=== PATIENT | female | born 1980 | race Caucasian/White ===

== ENCOUNTER 2017-03-16 16:26 | Emergency (ER) | payer BC ==
[2017-03-16 18:05] LABS: ALBUMIN 3.8 g/dL (3.2-5.5); ALBUMIN/GLOBULIN RATIO 1.1 (1.0-2.2); BILIRUBIN,TOTAL 0.4 mg/dL (0.2-1.0); CALCIUM 8.6 mg/dL (8.5-10.3); CREATININE 0.6 mg/dL (0.4-1.0); TOTAL PROTEIN 7.2 g/dL (6.7-8.2)
[2017-03-16 18:11] LABS: BASOPHILS % (AUTO) 0.4 %; EOSINOPHILS # (AUTO) 0.1 10^3/uL (0.0-0.7); EOSINOPHILS % (AUTO) 1.6 %; HGB - HEMOGLOBIN 11.8 g/dL (12.0-16.0); MEAN CORPUSCULAR HEMOGLOBIN 27.3 pg (27.0-31.0); MEAN CORPUSCULAR HGB CONC 32.2 g/dL (32.0-36.0); MEAN CORPUSCULAR VOLUME 84.7 fL (81.0-99.0); MEAN PLATELET VOLUME 7.2 fL (7.9-10.8); MONOCYTES # (AUTO) 0.5 10^3/uL (0.0-1.0); MONOCYTES % (AUTO) 6.9 %; NEUTROPHILS # (AUTO) 4.9 10^3/uL (1.5-6.6); NEUTROPHILS % (AUTO) 65.1 %; PLT - PLATELET COUNT 210 10^3/uL (130-450); RED BLOOD COUNT 4.32 10^6/uL (4.20-5.40); RED CELL DISTRIBUTION WIDTH 16.9 % (12.0-15.0); WHITE BLOOD COUNT 7.5 x10^3/uL (4.8-10.8)
[2017-03-16] MEDS ORDERED: HYDROcod/ACETAM 5/325 MG TABLET PO STA (18:19)
--- NOTE | 2017-03-16 18:21 | ED Physician Documentation ---
History of Present Illness - Stated complaint Stated Complaint: FEMALE /7WEEKS PREG/ABD PX - Chief complaint Chief Complaint: General - History obtained from History obtained from: Patient, Family - History of Present Illness Timing: Today Pain level max: 8 Pain level now: 5 Improved by: nothing Worsened by: nothing - Additonal information Additional information: , EGA 5 weeks. HCG quant 4k last week at [facility], 5k, 2 days ago at [facility]. vaginal bleeding and cramping today. R pelvic pain. Had an US with empty GS 2 days ago, did not have R pelvic pain then. Review of Systems Ten Systems: 10 systems reviewed and negative Constitutional: denies: Fever, Chills Nose: denies: Rhinorrhea / runny nose, Congestion Throat: denies: Sore throat Cardiac: denies: Chest pain / pressure Respiratory: denies: Cough GI: denies: Abdominal Pain, Nausea, Vomiting, Diarrhea Skin: denies: Rash Musculoskeletal: denies: Neck pain, Back pain Neurologic: denies: Headache PD PAST MEDICAL HISTORY - Past Medical History Past Medical History: Yes GI: Other Psych: Depression - Past Surgical History Past Surgical History: Yes HEENT: Tonsil/Adenoidectomy - Present Medications Home Medications: Ambulatory Orders Medication Instructions Recorded Confirmed Hydrocodone/Acetaminophen 1 - 2 each PO Q6H PRN #14 tablet 03/16/17 [Hydrocodon-Acetaminophen 5-325] Ondansetron Odt [Zofran] 4 mg TL Q6H PRN #10 tablet 03/16/17 - Allergies Allergies/Adverse Reactions: Allergies Allergy/AdvReac Type Severity Reaction Status Date / Time cephalexin [From Keflex] Allergy Hives Verified 03/16/17 16:58 codeine Allergy Nausea Verified 03/16/17 16:58 - Living Situation Living Situation: reports: With family Living Arrangement: reports: At home - Social History Does the pt smoke?: No Smoking Status: Never smoker PD ED PE NORMAL - Vitals Vital signs reviewed: Yes - General General: Alert and oriented X 3, No acute distress, Well developed/nourished - HEENT HEENT: Moist mucous membranes - Neck Neck: Supple, no meningeal sign - Cardiac Cardiac: RRR, Strong equal pulses - Respiratory Respiratory: No respiratory distress, Clear bilaterally - Abdomen Abdomen: Soft, Non tender, Non distended - Female Female : Pt declined - Back Back: No CVA TTP - Derm Derm: Warm and dry - Neuro Neuro: Alert and oriented X 3 - Psych Psych: Normal mood, Normal affect Results - Vitals Vitals: Vital Signs - 24 hr 03/16/17 03/16/17 16:54 19:55 Temperature 36.4 C L Heart Rate 93 93 Respiratory 18 15 Rate Blood Pressure 142/76 H 131/69 H O2 Saturation 100 97 Oxygen O2 Source Room air - Labs Labs: Laboratory Tests 03/16/17 03/16/17 03/16/17 17:40 17:40 18:03 WBC 7.5 RBC 4.32 Hgb 11.8 L Hct 36.6 L MCV 84.7 MCH 27.3 MCHC 32.2 RDW 16.9 H Plt Count 210 MPV 7.2 L Neut # 4.9 Lymph # 2.0 [place] # 0.5 Eos # 0.1 Baso # 0.0 Absolute Nucleated RBC 0.00 Nucleated RBC % 0.0 Sodium 134 L Potassium 3.8 Chloride 105 Carbon Dioxide 19 L Anion Gap 10.0 BUN 11 Creatinine 0.6 Estimated GFR (MDRD) 114 Glucose 86 Calcium 8.6 Total Bilirubin 0.4 AST 26 ALT 24 Alkaline Phosphatase 70 Total Protein 7.2 Albumin 3.8 Globulin 3.4 Albumin/Globulin Ratio 1.1 Lipase 15 L HCG, Quant 3321.00 Urine Color Urine Clarity Urine pH Ur Specific [place] Urine Protein Urine Glucose (UA) Urine Ketones Urine Occult Blood Urine Nitrite Urine Bilirubin Urine Urobilinogen Ur Leukocyte Esterase Urine RBC Urine WBC Ur Squamous Epith Cells Urine Bacteria Ur Microscopic Review Urine Culture Comments Urine HCG, Qual 03/16/17 03/16/17 18:20 18:20 WBC RBC Hgb Hct MCV MCH MCHC RDW Plt Count MPV Neut # Lymph # [place] # Eos # Baso # Absolute Nucleated RBC Nucleated RBC % Sodium Potassium Chloride Carbon Dioxide Anion Gap BUN Creatinine Estimated GFR (MDRD) Glucose Calcium Total Bilirubin AST ALT Alkaline Phosphatase Total Protein Albumin Globulin Albumin/Globulin Ratio Lipase HCG, Quant Urine Color LT. YELLOW Urine Clarity HAZY Urine pH 6.0 Ur Specific [place] 1.010 1.010 Urine Protein NEGATIVE Urine Glucose (UA) NEGATIVE Urine Ketones NEGATIVE Urine Occult Blood LARGE H Urine Nitrite NEGATIVE Urine Bilirubin NEGATIVE Urine Urobilinogen 0.2 (NORMAL) Ur Leukocyte Esterase SMALL H Urine RBC TNTC H Urine WBC 11-25 H Ur Squamous Epith Cells FEW Squamous Urine Bacteria None Seen Ur Microscopic Review INDICATED Urine Culture Comments INDICATED Urine HCG, Qual POSITIVE - Rads (name of study) Pelvic US Radiology: Prelim report reviewed, EMP read contemporaneously, See rad report ( Single intrauterine gestational sac at EGA 5 weeks 1 day with URBAN 11/15/2017 based on mean sac diameter. No abnormalities identified to explain pain and bleeding ) PD MEDICAL DECISION MAKING - ED course Complexity details: reviewed results, re-evaluated patient, considered differential, d/w patient, d/w family ED course: Patient is a 36-year-old female presents to the emergency department with what appears to be an incomplete miscarriage. HCG is decreasing from 0974-4415. Gestational sac appears unchanged from her prior given her oral report of her history. She did develop nausea and vomiting after the hydrocodone, therefore Zofran was given. She is able tolerate p.o. We will have her follow-up with her doctor for further care. Unclear if this is an anembryonic or just an early miscarriage. Patient counseled regarding signs and symptoms for which I believe and urgent re-evaluation would be necessary. Patient with good understanding of and agreement to plan and is comfortable going home at this time This document was made in part using voice recognition software. While efforts are made to proofread this document, sound alike and grammatical errors may occur. Departure - Departure Disposition: 01 Home, Self Care Condition: Good Instructions: ED Miscarriage Incom Follow-Up: your,OB in 3 days [Other] Prescriptions: Hydrocodone/Acetaminophen [Hydrocodon-Acetaminophen 5-325] 1 - 2 each PO Q6H PRN #14 tablet PRN Reason: pain Ondansetron Odt [Zofran] 4 mg TL Q6H PRN #10 tablet PRN Reason: Nausea / Vomiting Comments: your HCG is down to 3300 today. You are likely miscarrying. Follow up with your doctor closely for further care. Return if you worsen. Discharge Date/Time: 03/16/17 21:07
[2017-03-16 18:41] LABS: BILIRUBIN,URINE NEGATIVE (NEGATIVE); GLUCOSE, URINE (UA) NEGATIVE (NEGATIVE); KETONES,URINE (UA) NEGATIVE (NEGATIVE); LEUKOCYTE ESTERASE, URINE SMALL (NEGATIVE); NITRITE,URINE NEGATIVE (NEGATIVE); OCCULT BLOOD,URINE LARGE (NEGATIVE); PROTEIN,URINE NEGATIVE (NEGATIVE); UROBILINOGEN,URINE 0.2 (NORMAL) E.U./dL (NORMAL)
[2017-03-16 18:42] LABS: CLARITY,URINE HAZY (CLEAR)
[2017-03-16 18:43] LABS: HCG UR QUAL POSITIVE
[2017-03-16 18:51] LABS: BACTERIA,URINE None Seen /HPF (None Seen); RBC,URINE TNTC /HPF (0-5); SQUAMOUS EPITHELIAL CELL,UR FEW Squamous (<= Few)
[2017-03-16 19:55] VITALS: BP 131/69
--- NOTE | 2017-03-16 20:41 | Ultrasound Report ---
EXAM: FIRST TRIMESTER OBSTETRIC ULTRASOUND (Less than 11 weeks) EXAM DATE: 03/16/2017 07:50 PM. CLINICAL HISTORY: Right pelvic pain, bleeding. LMP: Unknown. COMPARISONS: None. TECHNIQUE: Transabdominal and transvaginal ultrasound examination with static image documentation. CLINICAL DATES: EGA 5 weeks. HCG 3321. ASSESSMENT: Gestational Sac: Single intrauterine. Mean gestational sac diameter: 10.6 mm = 5 weeks 1 day. Embryo: CRL (crown-rump length) nonvisualized. Cardiac activity: Nonvisualized. Yolk sac: Nonvisualized. Amniotic fluid: Not accurately assessed at this gestational age. Early placenta: Not visible at this gestational age. Other: No perigestational fluid collection demonstrated. MATERNAL STRUCTURES: Uterus: Anteverted. Unremarkable. Cervix: Closed. Right Ovary/Adnexa: Unremarkable. The ovary measures 3.4 x 2.9 x 2.4 cm, volume 12.3 cc. Left Ovary/Adnexa: Unremarkable. The ovary measures 2.9 x 1.6 x 1.9 cm, volume 4.6 cc. Free Fluid: None. Other: None. IMPRESSION: 1. Single intrauterine gestational sac at EGA 5 weeks 1 day with URBAN 11/15/2017 based on mean sac ren meter. 2. No abnormalities identified to explain pain and bleeding [facility] Referring Provider Line: [phone] SITE ID: [id number]
[2017-03-16] MEDS ORDERED: ONDANSETRON ODT 4 MG TABLET TL STA (20:56)
--- NOTE | 2017-03-16 22:57 | ED Physician Documentation ---
Departure - Departure Disposition: 01 Home, Self Care Clinical Impression: Miscarriage Condition: Good Instructions: ED Miscarriage Incom Follow-Up: your,OB in 3 days [Other] Prescriptions: Hydrocodone/Acetaminophen [Hydrocodon-Acetaminophen 5-325] 1 - 2 each PO Q6H PRN #14 tablet PRN Reason: pain Ondansetron Odt [Zofran] 4 mg TL Q6H PRN #10 tablet PRN Reason: Nausea / Vomiting Comments: your HCG is down to 3300 today. You are likely miscarrying. Follow up with your doctor closely for further care. Return if you worsen. Discharge Date/Time: 03/16/17 21:07
== END 2017-03-16 21:07 | disposition home or self-care (01) ==
LOC: ED 16:26
DX: O03.9 Complete or unspecified spontaneous abortion without complication (principal)
CPT/HCPCS: 36415; 76801; 76817; 80053; 81001; 81025; 83690; 84702; 85025; 87086; 99283; A9270; Q0162; 81003; 86850; 86900; 86901